=== PATIENT | female | born 1990 | race Caucasian/White ===

== ENCOUNTER 2016-05-22 09:38 | Emergency (ER) | payer OTHER ==
[2016-05-22 09:51] VITALS: BP 114/76
--- NOTE | 2016-05-22 11:29 | UC ---
Any Kim Rebecca, scribed for Varsha Biswas MD on 05/22/16 at 1033 . Respiratory Complaint HPI - HPI Summary HPI Summary: Pt is a 25 y/o F accompanied by her 2 month old daughter who presents to [facility] c/o nasal congestion, nonproductive cough, sore throat and diffuse body aches. Sx began suddenly 5 days ago and have been constant since onset. Associated pain is currently ranked 6/10 and characterized as aching. Sx aggravated and alleviated by nothing, unchanged by OTC medications. Denies any rash. Pt has 4 children (eldest is 7 years old) and reports that illness has been present throughout the household. Is not breast feeding. Did not receive her flu vaccine. 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 Does not take any daily medications. SHx current smoker. PMHx seizures and Hepatitis C. FHx seizures. PCP is Dr. Galan. - History of Current Complaint Chief Complaint: UCRespiratory Stated Complaint: HEAD CONGESTION SORE THROAT Hx Obtained From: Patient Hx From Patient Unobtainable Due To: Extremis Hx Last Menstrual Period: 05/05/2016 Onset/Duration: Sudden Onset, Lasting Days - 5 days, Still Present Timing: Constant Severity Initially: Moderate Severity Currently: Moderate Pain Intensity: 6 Pain Scale Used: 0-10 Numeric Character: Cough: Nonproductive Aggravating Factors: Nothing Alleviating Factors: Nothing Associated Signs And Symptoms: Positive: Nasal Congestion - Risk Factors Pulmonary Embolism Risk Factors: Negative Cardiac Risk Factors: Negative Pseudomonas Risk Factors: Negative Tuberculosis Risk Factors: Negative - Allergies/Home Medications Allergies/Adverse Reactions: Allergies Allergy/AdvReac Type Severity Reaction Status Date / Time Penicillin V Allergy Unknown Rash Verified 05/22/16 09:45 [From Penicillin VK Potassium] Aspirin Allergy Hives Verified 05/22/16 09:45 PMH/Surg Hx/FS Hx/Imm Hx Neurological History Of: Reports: Seizures - only when in pain Other History Of: Hepatitis C - Surgical History Surgical History: Yes Surgery Procedure, Year, and Place: right arm fx at 9 years old. - Family History Known Family History: Positive: Seizure Disorder Family History: none - Social History Occupation: Employed Full-time Lives: With Family Alcohol Use: None Substance Use Type: Synthetic Drugs Substance Use Comment - Amount & Last Used: 08/15/14 prior to admission Smoking Status (MU): Current Every Day Smoker Type: Cigarettes Amount Used/How Often: 5 cigs/day Length of Time of Smoking/Using Tobacco: 10+ years Have You Smoked in the Last Year: Yes - Immunization History Most Recent Influenza Vaccination: no Most Recent Tetanus Shot: 01/11/12 Most Recent Pneumonia Vaccination: never Review of Systems Skin: Rash - Negative ENT: Sore Throat, Other - Nasal congestion Respiratory: Cough - Nonproductive Musculoskeletal: Myalgia All Other Systems Reviewed And Are Negative: Yes Physical Exam Triage Information Reviewed: Yes Appearance: No Pain Distress, Well-Nourished, Ill-Appearing - mild Vital Signs: Initial Vital Signs Temp 98.0 F 05/22/16 09:46 Pulse 94 05/22/16 09:46 Resp 16 05/22/16 09:46 BP 114/76 05/22/16 09:46 Pulse Ox 100 05/22/16 09:46 Vital Signs Reviewed: Yes Eyes: Positive: Conjunctiva Clear ENT: Positive: Pharyngeal erythema, Nasal congestion, TMs normal Neck: Positive: Supple, Nontender, No Lymphadenopathy Respiratory: Positive: Lungs clear, Normal breath sounds, No respiratory distress Cardiovascular: Positive: RRR, No Murmur, Pulses Normal, Brisk Capillary Refill Musculoskeletal: Positive: Strength Intact, ROM Intact Neurological: Positive: Alert, Muscle Tone Normal Psychological Exam: Normal Skin Exam: Normal UC Diagnostic Evaluation - Laboratory O2 Sat by Pulse Oximetry: 100 Re-Evaluation - Re-Evaluation First Eval Re-Evaluation Time: 11:16 Change: Improved Comment: Discussed current results with patient. Advised pt to sleep, increase fluids and rest as much as possible. Pt requests a prescription for cough medication. Reports that she is typically home alone with her children, so she would like to avoid narcotics. Would like an inhaler for sx. Advised pt to use inhaler QID through the weekend. Counseled pt on quitting/lessening smoking. Respiratory Course/Dx - Course Course Of Treatment: Allergies noted. Influenza A, Influenza B and Group A Rapid Strep all negative. - Differential Dx/Diagnosis Differential Diagnosis/HQI/PQRI: Bronchitis, Influenza, Lower Resp Infection, Sinusitis Provider Diagnoses: Tobacco abuse disorder. Acute bronchitis Discharge - Discharge Plan Condition: Stable Disposition: HOME Prescriptions: Albuterol HFA INHALER* [Ventolin HFA Inhaler*] 1 - 2 puff INH Q4H PRN #1 mdi PRN Reason: Cough Azithromycin TAB* [Zithromax TAB (Z-LILIANA) 250 mg #6 tabs] 2 tab PO .TODAY, THEN 1 DAILY #1 liliana Benzonatate CAP* [Tessalon CAP*] 100 mg PO TID PRN #20 cap PRN Reason: Cough Patient Education Materials: Acute Bronchitis (ED) Forms: *Work Release Referrals: Tammy Galan MD [Primary Care Provider] - Additional Instructions: RETURN TO URGENT CARE FOR ANY RETURNING OR WORSENING OF SYMPTOMS. The documentation as recorded by the Any soliman Rebecca accurately reflects the service I personally performed and the decisions made by True zaman Barbara J, MD.
== END 2016-05-22 11:28 | disposition home or self-care (01) ==
LOC: UCEAST 09:38
DX: J20.9 Acute bronchitis, unspecified (principal); Z88.6 Allergy status to analgesic agent; Z88.0 Allergy status to penicillin; F17.210 Nicotine dependence, cigarettes, uncomplicated
CPT/HCPCS: 87502; 87651; 99212; G0463

== ENCOUNTER 2016-05-25 13:55 | Emergency (ER) | payer OTHER ==
[2016-05-25 14:19] VITALS: BP 146/85
--- NOTE | 2016-05-25 15:35 | UC ---
Respiratory Complaint HPI - HPI Summary HPI Summary: HAS HAD OVER A WEEK OF COUGH, CONGESTION, FATIGUE, ST. SEEN HERE ON 05/22 AND TX FOR BRONCHITIS WITH AZITH, ALBUTEROL AND TESSALON. STATES SHE IS NO BETTER AND NOW HAS WATERY STOOLS. NO FEVER. - History of Current Complaint Chief Complaint: UCRespiratory Stated Complaint: DIARRHEA ABD PAIN COUGH Time Seen by Provider: 05/25/16 15:22 Hx Obtained From: Patient Hx Last Menstrual Period: 05/05/16 Onset/Duration: Gradual Onset, Lasting Days, Still Present Severity Initially: Moderate Severity Currently: Moderate Pain Intensity: 8 Pain Scale Used: 0-10 Numeric Character: Cough: Nonproductive Aggravating Factors: Nothing Alleviating Factors: Nothing Associated Signs And Symptoms: Positive: URI, Nasal Congestion - Allergies/Home Medications Allergies/Adverse Reactions: Allergies Allergy/AdvReac Type Severity Reaction Status Date / Time Penicillin V Allergy Unknown Rash Verified 05/22/16 09:45 [From Penicillin VK Potassium] Aspirin Allergy Hives Verified 05/22/16 09:45 PMH/Surg Hx/FS Hx/Imm Hx Endocrine History Of: Denies: Diabetes, Thyroid Disease Cardiovascular History Of: Denies: Cardiac Disorders, Hypertension, Congestive Heart Failure Respiratory History Of: Denies: COPD, Asthma GI/ History Of: Denies: Ulcer, Renal Disease Neurological History Of: Reports: Seizures - only when in pain Other History Of: Hepatitis C - Surgical History Surgical History: Yes Surgery Procedure, Year, and Place: right arm fx at 9 years old. - Family History Known Family History: Positive: Diabetes, Seizure Disorder Family History: none - Social History Alcohol Use: None Substance Use Type: Synthetic Drugs Substance Use Comment - Amount & Last Used: 08/15/14 prior to admission Smoking Status (MU): Current Every Day Smoker Type: Cigarettes Amount Used/How Often: 5 cigs/day Length of Time of Smoking/Using Tobacco: 10+ years Have You Smoked in the Last Year: Yes - Immunization History Most Recent Influenza Vaccination: no Most Recent Tetanus Shot: 01/11/12 Most Recent Pneumonia Vaccination: never Review of Systems Constitutional: Negative, Fatigue ENT: Sore Throat, Nasal Discharge Respiratory: Cough Cardiovascular: Negative Gastrointestinal: Diarrhea All Other Systems Reviewed And Are Negative: Yes Physical Exam Triage Information Reviewed: Yes Appearance: Well-Appearing, No Pain Distress, Well-Nourished Vital Signs: Initial Vital Signs Temp 97.4 F 05/25/16 14:15 Pulse 92 05/25/16 14:15 Resp 16 05/25/16 14:15 BP 146/85 05/25/16 14:15 Pulse Ox 100 05/25/16 14:15 Vital Signs Reviewed: Yes Eyes: Positive: Conjunctiva Clear ENT: Positive: Hearing grossly normal, Pharynx normal, TMs normal Neck: Positive: Supple, Nontender, No Lymphadenopathy Respiratory Exam: Normal Cardiovascular Exam: Normal Abdomen Description: Positive: Soft Musculoskeletal: Positive: No Edema Neurological: Positive: Alert Psychological: Positive: Age Appropriate Behavior Skin: Negative: rashes UC Diagnostic Evaluation - Laboratory O2 Sat by Pulse Oximetry: 100 Respiratory Course/Dx - Differential Dx/Diagnosis Provider Diagnoses: ACUTE BRONCHITIS - LIKELY VIRAL Discharge - Discharge Plan Condition: Stable Disposition: HOME Prescriptions: guaiFENesin/CODIEN 100MG-10MG* [Robitussin AC 100Mg-10Mg*] 5 - 10 ml PO Q6H PRN #150 ml MDD 40ML PRN Reason: Cough Patient Education Materials: Acute Bronchitis (ED) Forms: *Work Release Referrals: Tammy Galan MD [Primary Care Provider] - If Needed Additional Instructions: YOUR SYMPTOMS ARE LIKELY VIRAL IN ETIOLOGY WHICH WOULD EXPLAIN WHY THE ANTIBIOTIC SEEMED TO HAVE NO EFFECT. CONTINUE THE AZITH TO COMPLETE COURSE. WILL GIVE CODEINE COUGH SYRUP TO HELP WITH YOUR SYMPTOMS AND ALLOW YOU TO GET SOME REST. NEVER CO-SLEEP WITH YOUR BABY IN THE BED WHILE ON SEDATING MEDICATION AND BE SURE YOUR PARTNER IS IN THE ROOM TO RESPOND TO BABY IF SHE CRIES AT NIGHT YOU MAY NOT WAKE UP OR HEAR HER CRIES WHILE ON THIS MEDICATION. SEEK FOLLOW-UP IF YOU ARE NOT IMPROVING OVER THE NEXT 1-2 WEEKS.
== END 2016-05-25 16:12 | disposition home or self-care (01) ==
LOC: UCEAST 13:55
DX: J20.9 Acute bronchitis, unspecified (principal); Z88.6 Allergy status to analgesic agent; Z88.0 Allergy status to penicillin; F17.210 Nicotine dependence, cigarettes, uncomplicated
CPT/HCPCS: 99212; G0463

== ENCOUNTER 2016-07-30 09:42 | Emergency (ER) | payer SELFPAY ==
[2016-07-30 10:33] VITALS: BP 131/74
--- NOTE | 2016-07-30 12:19 | UC ---
Upper Extremity HPI - HPI Summary HPI Summary: Stung at palmar base of L thumb about 2am by wasp or bee and has had marked swelling, redness, itching, and redness since then, coming up her arm to L elbow. - History of Current Complaint Chief Complaint: UCAllergicReaction Stated Complaint: BEE STING REACTION Time Seen by Provider: 07/30/16 12:00 Hx Obtained From: Patient Hx Last Menstrual Period: current ?: No Onset/Duration: Sudden Onset Severity Initially: Mild Severity Currently: Moderate Character: Stiffness Aggravating Factor(s): Nothing Alleviating Factor(s): Rest Associated Signs And Symptoms: Positive: Swelling, Redness Related History: Dominant Hand Right - Allergies/Home Medications Allergies/Adverse Reactions: Allergies Allergy/AdvReac Type Severity Reaction Status Date / Time Penicillin V Allergy Unknown Rash Verified 07/30/16 10:29 [From Penicillin VK Potassium] Aspirin Allergy Hives Verified 07/30/16 10:29 PMH/Surg Hx/FS Hx/Imm Hx Endocrine History Of: Denies: Diabetes, Thyroid Disease Cardiovascular History Of: Denies: Cardiac Disorders, Hypertension, Congestive Heart Failure Respiratory History Of: Denies: COPD, Asthma GI/ History Of: Denies: Ulcer, Renal Disease Neurological History Of: Reports: Seizures - only when in pain Other History Of: Hepatitis C - Surgical History Surgical History: Yes Surgery Procedure, Year, and Place: right arm fx at 9 years old. - Family History Known Family History: Positive: Diabetes, Seizure Disorder Family History: none - Social History Occupation: Employed Full-time Lives: With Family Alcohol Use: None Substance Use Type: None Substance Use Comment - Amount & Last Used: 08/15/14 prior to admission Smoking Status (MU): Light Every Day Tobacco Smoker Type: Cigarettes Amount Used/How Often: 5 cigs/day Length of Time of Smoking/Using Tobacco: 10+ years Have You Smoked in the Last Year: Yes - Immunization History Most Recent Influenza Vaccination: no Most Recent Tetanus Shot: 01/11/12 Most Recent Pneumonia Vaccination: never Review of Systems Constitutional: Negative Skin: Other - swelling and redness of L hand Eyes: Negative ENT: Negative Respiratory: Negative Cardiovascular: Negative Gastrointestinal: Negative Genitourinary: Negative Motor: Negative Neurovascular: Negative Musculoskeletal: Negative Neurological: Negative Psychological: Negative All Other Systems Reviewed And Are Negative: Yes Physical Exam Triage Information Reviewed: Yes Appearance: Well-Appearing, No Pain Distress, Well-Nourished Vital Signs: Initial Vital Signs Temp 98.1 F 07/30/16 10:29 Pulse 88 07/30/16 10:29 Resp 16 07/30/16 10:29 BP 131/74 07/30/16 10:29 Pulse Ox 100 07/30/16 10:29 Vital Signs Reviewed: Yes Eye Exam: Normal Eyes: Positive: Conjunctiva Clear ENT Exam: Normal ENT: Positive: Normal ENT inspection, Hearing grossly normal, Pharynx normal, TMs normal, Other: - no oropharyngeal or tongue edema Dental Exam: Normal Neck exam: Normal Neck: Positive: Supple, Nontender, No Lymphadenopathy Respiratory Exam: Normal Respiratory: Positive: Chest non-tender, Lungs clear, Normal breath sounds, No respiratory distress, No accessory muscle use Cardiovascular Exam: Normal Cardiovascular: Positive: RRR, No Murmur Musculoskeletal: Positive: Strength Intact, ROM Limited @ - L hand plant safety leader due to swelling Neurological Exam: Normal Neurological: Positive: Alert Psychological Exam: Normal Skin Exam: Other - L hand diffuse swelling, redness mainly on palmar aspect of hand with wide linear streak (approx 5cm wide) up to elbow Upper Extremity Course/Dx - Differential Dx/Diagnosis Provider Diagnoses: L hand insect sting with large local reaction. Elevated blood pressure due to pain Discharge - Discharge Plan Condition: Stable Disposition: HOME Prescriptions: Cetirizine HCl [Goodsense All Day Allergy] 10 mg PO DAILY #30 tab predniSONE TAB* [Deltasone TAB*] 50 mg PO DAILY #5 tab Patient Education Materials: Insect Bite or Sting (ED) Forms: *Work Release Referrals: Tammy Galan MD [Primary Care Provider] - If Needed Additional Instructions: As we discussed, your large local reaction is common with stinging insects and is NOT a dangerous allergic reaction. Some stings lead to major swelling and redness and some stay small. Today I recommend you take 25-50mg diphenhydramine (benadryl) every 4 hours while you are awake. Starting tomorrow you can take 10mg cetirizine in the morning and 2 diphenhydramine at bedtime until your symptoms are gone.
== END 2016-07-30 12:18 | disposition home or self-care (01) ==
LOC: UCEAST 09:42
DX: T63.441A Toxic effect of venom of bees, accidental (unintentional), initial encounter (principal); L29.9 Pruritus, unspecified; Y92.9 Unspecified place or not applicable; R03.0 Elevated blood-pressure reading, without diagnosis of hypertension; Z88.6 Allergy status to analgesic agent; Z88.0 Allergy status to penicillin; F17.210 Nicotine dependence, cigarettes, uncomplicated
CPT/HCPCS: 99212; G0463

== ENCOUNTER 2017-01-16 10:39 | Emergency (ER) | payer OTHER ==
[2017-01-16 11:12] VITALS: BP 108/73
[2017-01-16] MEDS ORDERED: predniSONE TAB* 20 MG PO ONE (11:30)
[2017-01-16] MEDS ORDERED: Albuterol/Ipratropium NEB.SOL* Albuterol 2.5 MG/Ipratropium 0.5 MG 3 ML INH ONE (11:30)
--- NOTE | 2017-01-16 11:31 | UC ---
FLU HPI - HPI Summary HPI Summary: 2-3 days of worseing cough, congestion, wheezing, cold chills, subjective fever - History of Current Complaint Chief Complaint: UCRespiratory Stated Complaint: FLU SYMPTOMS Time Seen by Provider: 01/16/17 11:23 Hx Obtained From: Patient Hx Last Menstrual Period: 01/02/17 ?: No Onset/Duration: Sudden Onset, Lasting Days - 3 Severity Initially: Moderate Pain Intensity: 6 Pain Scale Used: 0-10 Numeric Associated Signs & Symptoms: Positive: Fever, Myalgia, Cough - Allergy/Home Medications Allergies/Adverse Reactions: Allergies Allergy/AdvReac Type Severity Reaction Status Date / Time Penicillin V Allergy Unknown Rash Verified 01/16/17 11:12 [From Penicillin VK Potassium] Aspirin Allergy Hives Verified 01/16/17 11:12 PMH/Surg Hx/FS Hx/Imm Hx Previously Healthy: No Other History Of: Hepatitis C - Surgical History Surgical History: Yes Surgery Procedure, Year, and Place: right arm fx at 9 years old. 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 addiction Smoking Status (MU): Light Every Day Tobacco Smoker Type: Cigarettes Amount Used/How Often: 5 cigs/day Length of Time of Smoking/Using Tobacco: 10+ years Have You Smoked in the Last Year: Yes Cessation Counseling: Patient Advised to Stop - Immunization History Most Recent Influenza Vaccination: no Most Recent Tetanus Shot: 01/11/12 Most Recent Pneumonia Vaccination: never Review of Systems Constitutional: Fever, Chills, Fatigue Skin: Negative Eyes: Negative ENT: Sore Throat Respiratory: Shortness Of Breath, Cough Cardiovascular: Negative Gastrointestinal: Negative Genitourinary: Negative Motor: Negative Neurovascular: Negative Musculoskeletal: Arthralgia Neurological: Negative Psychological: Negative Is Patient Immunocompromised?: No All Other Systems Reviewed And Are Negative: Yes Physical Exam Triage Information Reviewed: Yes Appearance: Ill-Appearing, Pain Distress, Obese Vital Signs: Initial Vital Signs Temp 98.0 F 01/16/17 11:09 Pulse 94 01/16/17 11:09 Resp 16 01/16/17 11:09 BP 108/73 01/16/17 11:09 Pulse Ox 99 01/16/17 11:09 Vital Signs Reviewed: Yes Eye Exam: Normal Eyes: Positive: Conjunctiva Clear ENT Exam: Normal ENT: Positive: Normal ENT inspection, Hearing grossly normal, Pharynx normal, TMs normal. Negative: Nasal congestion, Nasal drainage, Tonsillar swelling, Tonsillar exudate, Trismus, Muffled/hoarse voice Dental Exam: Normal Neck exam: Normal Neck: Positive: Supple, Nontender, No Lymphadenopathy Respiratory Exam: Normal Respiratory: Positive: Chest non-tender, No respiratory distress, No accessory muscle use, Wheezing Cardiovascular Exam: Normal Cardiovascular: Positive: RRR, No Murmur, Pulses Normal, Brisk Capillary Refill Musculoskeletal Exam: Normal Musculoskeletal: Positive: Strength Intact, ROM Intact, No Edema Neurological Exam: Normal Neurological: Positive: Alert, Muscle Tone Normal Psychological Exam: Normal Skin Exam: Normal Re-Evaluation - Re-Evaluation First Eval Change: Improved - increase airmovement---wheeze resolved, Flu Course/Dx - Course Course Of Treatment: albuterol, prednisone increase fluids, rest follow with pcp prn - Differential Dx/Diagnosis Provider Diagnoses: URI, Nicotine dependent, bronchospasm Discharge - Discharge Plan Condition: Stable Disposition: HOME Prescriptions: Albuterol HFA INHALER* [Ventolin HFA Inhaler*] 2 puff INH Q4H PRN #1 mdi PRN Reason: wheeze/cough predniSONE TAB* [Deltasone TAB*] 20 mg PO DAILY #9 tab Patient Education Materials: How to Stop Smoking (ED), Upper Respiratory Infection (ED), Bronchospasm (ED), How to Use a Metered-Dose Inhaler and a Spacer (ED) Forms: *Work Release Referrals: Tammy Galan MD [Primary Care Provider] - If Needed
== END 2017-01-16 12:27 | disposition home or self-care (01) ==
LOC: UCEAST 10:39
DX: J06.9 Acute upper respiratory infection, unspecified (principal); J98.01 Acute bronchospasm; Z88.6 Allergy status to analgesic agent; E66.9 Obesity, unspecified; Z88.0 Allergy status to penicillin; Z86.19 Personal history of other infectious and parasitic diseases; F17.210 Nicotine dependence, cigarettes, uncomplicated
CPT/HCPCS: 99212; A9270-GY; G0463; J7512

== ENCOUNTER 2017-05-01 09:31 | Emergency (ER) | payer OTHER | END 2017-05-01 12:40 | disposition left against medical advice (07) | LOC: UCEAST 09:31 | DX: Z53.21 Procedure and treatment not carried out due to patient leaving prior to being seen by health care provider (principal) ==

== ENCOUNTER 2017-10-06 13:08 | Emergency (ER) | payer SELFPAY ==
[2017-10-06 13:17] VITALS: BP 118/75
[2017-10-06] MEDS ORDERED: Tetan/Diph/Pertus SYR(Tdap)* 0.5 ML SYR(BOOSTRIX) use SYR IM ONE (13:31)
--- NOTE | 2017-10-06 13:57 | RAD ---
INDICATION: Hand pain and edema at the metacarpals from dog bite. COMPARISON: No relevant prior exams available on the [facility] for comparison. TECHNIQUE: AP and lateral hand views LEFT hand. REPORT: Severe soft tissue swelling over the dorsum of the hand at the level of the metacarpal phalangeal joints. At the ulnar margin of the head of the third metacarpal there is osseous irregularity which may reflect a focal impaction type fracture secondary to a bite type injury. No subcutaneous emphysema or conspicuous foreign body evident. Normal articular alignment. IMPRESSION: #. At the ulnar margin of the head of the third metacarpal there is osseous irregularity which may reflect a focal impaction type fracture secondary to a bite type injury. #. Soft tissue swelling without visualized subcutaneous emphysema or conspicuous foreign body.
--- NOTE | 2017-10-06 14:25 | UC ---
Any Kim Rebecca, scribed for Bob Chambers MD on 10/06/17 at 1327 . Bite Injury/Animal HPI - HPI Summary HPI Summary: Pt is a 26 y/o F who presents to [facility] c/o animal bite to the left hand. Last night, she went to pet a pitbull and got bit. She does not know the owners, but they reported that the dog is UTD with all vaccinations, including rabies. Associated pain is moderate, ranked 6/10. Did not call animal control or the police. Right-hand dominant and last Tetanus was in 2011. - History of Current Complaint Chief Complaint: UCBiteInjury Stated Complaint: DOG BITE Time Seen by Provider: 10/06/17 13:25 Hx Obtained From: Patient Hx Last Menstrual Period: 10/03/17 Severity Currently: Moderate Pain Intensity: 6 Pain Scale Used: 0-10 Numeric Onset/Duration: Still Present Type of Bite: Pet - Dog Has Animal Been Immunized?: Yes Aggravating Factor(s): Nothing Alleviating Factor(s): Nothing Animal Control Notified: No - Allergies/Home Medications Allergies/Adverse Reactions: Allergies Allergy/AdvReac Type Severity Reaction Status Date / Time aspirin Allergy Hives Verified 10/06/17 13:17 Penicillins Allergy Rash Verified 10/06/17 13:17 PMH/Surg Hx/FS Hx/Imm Hx - Additional Past Medical History Additional PMH: NEGATIVE PMHx: COPD, Asthma Other History Of: Hepatitis C - Surgical History Surgical History: Yes Surgery Procedure, Year, and Place: right arm fx at 9 years old. 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 Smoking Status (MU): Light Every Day Tobacco Smoker Type: Cigarettes Amount Used/How Often: 1 pk every 2 days Length of Time of Smoking/Using Tobacco: 10+ years Have You Smoked in the Last Year: Yes - Immunization History Most Recent Influenza Vaccination: no Most Recent Tetanus Shot: 01/11/12 Most Recent Pneumonia Vaccination: never Review of Systems Constitutional: Negative Skin: Other - L hand dog bite Eyes: Negative ENT: Negative Respiratory: Negative Cardiovascular: Negative Gastrointestinal: Negative Genitourinary: Negative Motor: Negative Neurovascular: Negative Musculoskeletal: Negative Neurological: Negative Psychological: Negative All Other Systems Reviewed And Are Negative: Yes Physical Exam - Summary Physical Exam Summary: Appearance: Well appearing, no pain distress Skin: warm, dry, reflects adequate perfusion, 1 cm semi-curved laceration to the radial surface of the index finger near the MCP joint, there is no wound at the head of the third metacarpal Head/face: normal Eyes: EOMI, BASILIO ENT: normal Neck: supple, non-tender Respiratory: CTA, breath sounds present Cardiovascular: RRR, pulses symmetrical Musculoskeletal: contusion and tenderness to the metacarpals of the left index, middle, and ring fingers with slight ecchymosis and swelling, strength/ROM intact Neuro: normal, sensory motor intact, A&Ox3 Triage Information Reviewed: Yes Vital Signs: Initial Vital Signs Temp 97.7 F 10/06/17 13:11 Pulse 83 10/06/17 13:11 Resp 16 10/06/17 13:11 BP 118/75 10/06/17 13:11 Pulse Ox 98 10/06/17 13:11 Vital Signs Reviewed: Yes Procedures - Splinting 1 Hand-Made Type: orthoglass Splint: volar Pre-Proc Neuro Vasc Exam: normal Post-Proc Neuro Vasc Exam: normal Diagnostics - Radiology Hand XR Radiology Interpretation Completed By: Radiologist - #. At the ulnar margin of the head of the third metacarpal there is osseous irregularity which may reflect a focal impaction type fracture secondary to a bite type injury. #. Soft tissue swelling without visualized subcutaneous emphysema or conspicuous foreign body. Physician reviewed this report. Re-Evaluation - Re-Evaluation First Eval Re-Evaluation Time: 14:15 Comment: Discussed XR results and splinted. Bite Injury Course/Dx - Course Course Of Treatment: Patient with an old skin tear/laceration to the hand on the radial surface of the MCP area of the index finger. This is dried with some erythema around it. She will require antibiotics. There is also tenderness with ecchymosis centered around the metacarpal of the long finger. There is an impacted fracture at the site without displacement. There is no intra-articular component. A splint was applied. Voucher given for antibiotics. - Differential Dx/Diagnosis Provider Diagnoses: Left third Metacarpal head fracture, dog bite, left hand laceration Discharge - Sign-Out/Discharge Documenting (check all that apply): Discharge/Admit/Transfer - Discharge - Discharge Plan Condition: Good Disposition: HOME Prescriptions: Clindamycin Cap(NF) [Clindamycin Cap 300 mg Cap(NF)] 300 mg PO TID #21 cap DOXYcycline CAP(*) [DOXYcycline 100MG CAP(*)] 100 mg PO BID #14 cap Patient Education Materials: Animal Bite (ED), Hand Fracture (ED) Referrals: Tammy Galan MD [Primary Care Provider] - Anastacia Zacarias MD [Medical Doctor] - Additional Instructions: Clean the wound with soap and water frequently throughout the day. The fracture should not require any specialized care. He can follow up with your family doctor. Orthopedic referral was given should you experience more discomfort or your doctor wants to refer you. Keep splint clean and dry. - Billing Disposition and Condition Condition: GOOD Disposition: Home The documentation as recorded by the Any soliman Rebecca accurately reflects the service I personally performed and the decisions made by Reyes zaman Kirk, MD.
== END 2017-10-06 14:32 | disposition home or self-care (01) ==
LOC: UCEAST 13:08
DX: S62.393A Other fracture of third metacarpal bone, left hand, initial encounter for closed fracture (principal); S61.412A Laceration without foreign body of left hand, initial encounter; W54.0XXA Bitten by dog, initial encounter; Y93.9 Activity, unspecified; Y92.9 Unspecified place or not applicable; Z23 Encounter for immunization; Z88.6 Allergy status to analgesic agent; Z88.0 Allergy status to penicillin; Z83.3 Family history of diabetes mellitus; Z82.0 Family history of epilepsy and other diseases of the nervous system; F17.210 Nicotine dependence, cigarettes, uncomplicated
CPT/HCPCS: 90471; 90715; 99212; G0463

== ENCOUNTER 2017-11-29 19:48 | Emergency (ER) | payer OTHER ==
--- NOTE | 2017-11-29 19:57 | UC ---
Ear Complaint HPI - HPI Summary HPI Summary: 27 yo female presents with right ear pain for the last 4 days. She tells me that her ear feels full and she has been putting q-tips and tweezers in her ear trying to "get stuff out". Has never had a problem with cerumen impaction. Has not been swimming recently. Denies fever, chills, headache, dizziness, or drainage from the ear. - History of Current Complaint Stated Complaint: EAR PAIN Time Seen by Provider: 11/29/17 19:56 Hx Obtained From: Patient Hx Last Menstrual Period: 10/03/17 Onset/Duration: Gradual Onset Severity Initially: Moderate Severity Currently: Severe Pain Intensity: 8 Pain Scale Used: 0-10 Numeric - Allergies/Home Medications Allergies/Adverse Reactions: Allergies Allergy/AdvReac Type Severity Reaction Status Date / Time aspirin Allergy Hives Verified 10/06/17 13:17 Penicillins Allergy Rash Verified 10/06/17 13:17 PMH/Surg Hx/FS Hx/Imm Hx - Additional Past Medical History Additional PMH: None Other History Of: Hepatitis C - Surgical History Surgical History: Yes Surgery Procedure, Year, and Place: right arm fx at 9 years old. 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 Smoking Status (MU): Light Every Day Tobacco Smoker Type: Cigarettes Amount Used/How Often: 1 pk every 2 days Length of Time of Smoking/Using Tobacco: 10+ years Have You Smoked in the Last Year: Yes - Immunization History Most Recent Influenza Vaccination: no Most Recent Tetanus Shot: 01/11/12 Most Recent Pneumonia Vaccination: never Review of Systems Constitutional: Negative Skin: Negative Eyes: Negative ENT: Ear Ache Respiratory: Negative Cardiovascular: Negative Neurovascular: Negative Neurological: Negative Psychological: Negative All Other Systems Reviewed And Are Negative: Yes Physical Exam - Summary Physical Exam Summary: GENERAL: NAD. WDWN. No pain distress. SKIN: No rashes, sores, lesions, or open wounds. HEENT: Head: AT/NC Eyes: EOM intact. Conjunctiva clear without inflammation or discharge. Ears: Hearing grossly normal. LEFT EAR: TM intact. Ear canal with mild erythema. No edema or drainage. RIGHT EAR: Moderate ear canal erythema. Mild edema. Mild white purulent drainage around TM. On/within the TM there are two clusters of yellow spore-like growths. Nose: Nasal mucosa pink and moist. NTTP maxillary and frontal sinus. Throat: Posterior oropharynx without exudates, erythema, or tonsillar enlargement. Uvula midline. NECK: Supple. Nontender. No lymphadenopathy. CHEST: CTAB. No r/r/w. No accessory muscle use. Breathing comfortably and in no distress. CV: RRR. Without m/r/g. Pulses intact. NEURO: Alert. CN II-XII grossly intact. PSYCH: Age appropriate behavior. Triage Information Reviewed: Yes Vital Signs: Vital Signs: Temp Pulse Resp BP Pulse Ox 97.0 F 91 16 120/81 99 11/29/17 19:52 11/29/17 19:52 11/29/17 19:52 11/29/17 19:52 11/29/17 19:52 Vital Signs Reviewed: Yes Ear Complaint Course/Dx - Course Course Of Treatment: Otitis externa with suspected fungal component. Discussed with Dr. Wilkins. Will treat otitis externa with ofloxacin and have her try an OTC ear drop with acetic acid to treat the fungal component. I advised pt that if her symptoms worsen or if she develops radiating pain, fever, or new symptoms - to return to the clinic or go to the ED. Pt was agreeable to the plan. - Differential Dx/Diagnosis Provider Diagnoses: Right ear otitis externa Discharge - Sign-Out/Discharge Documenting (check all that apply): Patient Departure All imaging exams completed and their final reports reviewed: No Studies - Discharge Plan Condition: Stable Disposition: HOME Prescriptions: Ofloxacin 0.3% OTIC.JUAN* [Floxin 0.3% OTIC.JUAN*] 4 drop RIGHT EAR BID #1 btl Patient Education Materials: Otitis Externa (ED) Referrals: Tammy Galan MD [Primary Care Provider] - Additional Instructions: If you develop a fever, shortness of breath, chest pain, new or worsening symptoms - please call your PCP or go to the ED. 1) Please also ask the Pharmacist for an ear drop that contains acetic acid and use these ear drops IN ADDITION to your prescription ear drops - Billing Disposition and Condition Condition: STABLE Disposition: Home - Attestation Statements Provider Attestation: I performed a face to face evaluation of this patient and obtained an indepentent history and exam. I agree with the above history, physical exam and plan of the midlevel provider.
[2017-11-29 20:00] VITALS: BP 120/81
== END 2017-11-29 20:26 | disposition home or self-care (01) ==
LOC: UCEAST 19:48
DX: H60.91 Unspecified otitis externa, right ear (principal); F17.210 Nicotine dependence, cigarettes, uncomplicated; Z88.6 Allergy status to analgesic agent; Z88.0 Allergy status to penicillin
CPT/HCPCS: 99213; G0463

== ENCOUNTER 2018-04-02 11:02 | Emergency (ER) | payer OTHER ==
[2018-04-02 11:13] VITALS: BP 127/70
--- NOTE | 2018-04-02 11:31 | UC ---
Ear Complaint HPI - HPI Summary HPI Summary: 27-year-old female presents with one-month history of right ear pain and decreased hearing. States she has been seen by her primary care provider who has treated her with a course of azithromycin and provided her with some eardrops with no improvement in symptoms. Notes some decreased hearing in the right ear. Denies fever, chills, ear drainage, nasal congestion, nasal discharge, sore throat, tinnitus, dizziness, vertigo, chest pain, shortness of breath, abdominal pain, nausea, or vomiting. - History of Current Complaint Chief Complaint: UCEar Stated Complaint: EAR COMPLAINT Time Seen by Provider: 04/02/18 11:21 Hx Obtained From: Patient Hx Last Menstrual Period: 04/02/18 Pain Intensity: 3 - Allergies/Home Medications Allergies/Adverse Reactions: Allergies Allergy/AdvReac Type Severity Reaction Status Date / Time aspirin Allergy Hives Verified 04/02/18 11:14 Penicillins Allergy Rash Verified 04/02/18 11:14 sulfamethoxazole Allergy Swelling Verified 04/02/18 11:14 [From Bactrim] Of Face,Lips,& Throat trimethoprim [From Bactrim] Allergy Swelling Verified 04/02/18 11:14 Of Face,Lips,& Throat Home Medications: Home Medications Azithromycin 500 mg PO DAILY 04/02/18 [History Confirmed 04/02/18] PMH/Surg Hx/FS Hx/Imm Hx Previously Healthy: Yes - Denies signigicant PMH Other History Of: Hepatitis C - Surgical History Surgical History: Yes Surgery Procedure, Year, and Place: right arm fx at 9 years old. 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 Negative: Sore Throat, Nasal Discharge, Sinus Congestion, Sinus Pain/Tenderness Respiratory: Positive: Cough. Negative: Shortness Of Breath Cardiovascular: Negative: Palpitations, Chest Pain Gastrointestinal: Negative: Abdominal Pain, Vomiting, Diarrhea, Nausea Is Patient Immunocompromised?: No Physical Exam - Summary Physical Exam Summary: GENERAL APPEARANCE: Well developed, well nourished, alert and cooperative, and appears to be in no acute distress. EYES: Conjunctiva clear. No drainage. Vision is grossly intact. EARS: Left external auditory canal and tympanic membrane clear. Right external auditory canal with cerumen impaction. TM not visualized. Hearing grossly intact. NOSE: No nasal congestion or discharge. THROAT: Oral cavity and pharynx normal. No inflammation, swelling, exudate, or lesions. Teeth and gingiva in good general condition. NECK: Neck supple, non-tender without lymphadenopathy. CARDIAC: Normal S1 and S2. No S3, S4 or murmurs. Rhythm is regular. There is no peripheral edema, cyanosis or pallor. Extremities are warm and well perfused. Capillary refill is less than 2 seconds. LUNGS: Clear to auscultation and percussion without rales, rhonchi, wheezing or diminished breath sounds. ABDOMEN: Positive bowel sounds. Soft, nondistended, nontender. No guarding or rebound. No masses or hepatosplenomegally. MUSKULOSKELETAL: ROM intact to all extremities. No joint erythema or tenderness. Normal muscular development. Normal gait. SKIN: Skin normal color, texture and turgor with no lesions or eruptions. Vital Signs: Initial Vital Signs Temp 97.2 F 04/02/18 11:10 Pulse 90 04/02/18 11:10 Resp 18 04/02/18 11:10 BP 127/70 04/02/18 11:10 Pulse Ox 100 04/02/18 11:10 Re-Evaluation - Re-Evaluation First Eval Re-Evaluation Time: 11:55 Change: Improved Comment: Post-irrigation patient is reporting improved hearing and states pain is also improved. Right external auditory canal with mild excoriation and inflammation. TM intact, opaque, with good cone of light. Ear Complaint Course/Dx - Course Course Of Treatment: 27-year-old female presents with one-month history of right ear pain and decreased hearing. States she has been seen by her primary care provider who has treated her with a course of azithromycin and provided her with some eardrops with no improvement in symptoms. Notes some decreased hearing in the right ear. Denies fever, chills, ear drainage, nasal congestion , nasal discharge, sore throat, tinnitus, dizziness, vertigo, chest pain, shortness of breath, abdominal pain, nausea, or vomiting. Afebrile. Vital signs stable. Exam revealed a cerumen impaction of the right external auditory canal and otherwise unremarkable exam. Cerumen impaction was successfully irrigated and impaction removed. Post irrigation there was some notable excoriation of the right external auditory canal with some mild inflammation however of the TM was intact, opaque, with good cone of light. Will treat patient with a 7 day course of Ciprodex eardrops 4 drops twice a day to treat for an external otitis. She is to follow-up with her primary care provider if symptoms do not improve. Warning symptoms were reviewed with the patient. She verbalizes understanding and agrees with plan of care. - Differential Dx/Diagnosis Differential Diagnosis/HQI/PQRI: Cerumen Impaction, Otitis Externa, Otitis Media Provider Diagnosis: Otitis externa of right ear, Right ear impacted cerumen Discharge - Sign-Out/Discharge Documenting (check all that apply): Patient Departure All imaging exams completed and their final reports reviewed: No Studies - Discharge Plan Condition: Stable Disposition: HOME Prescriptions: Ciproflox/Dexameth OTIC.SUSP* [Ciprodex Otic*] 4 drop .SEE ORDER BID 7 Days #1 bottle Patient Education Materials: Otitis Externa (ED), Cerumen Impaction (ED) Referrals: Tammy Galan MD [Primary Care Provider] - 5 Days (If no improvement in symptoms.) Additional Instructions: You had a lot of wax in the right ear that was flushed out. There is some irritation and inflammation of the ear canal likely from the impacted ear wax but the ear drum was normal. Start Ciprodex ear drops 4 drops into the right ear twice a day for 7 days. Follow up with your primary care provider in 5 days if no improvement in symptoms. Seek immediate medical attention in the emergency room if you develop fever greater than 100.5 F, have worsening of pain, drainage or bleeding from the ear , dizziness, or any worsening of symptoms. - Billing Disposition and Condition Condition: STABLE Disposition: Home
== END 2018-04-02 12:05 | disposition home or self-care (01) ==
LOC: UCEAST 11:02
DX: H60.91 Unspecified otitis externa, right ear (principal); H61.21 Impacted cerumen, right ear; B19.20 Unspecified viral hepatitis C without hepatic coma; F17.210 Nicotine dependence, cigarettes, uncomplicated; Z88.6 Allergy status to analgesic agent; Z88.0 Allergy status to penicillin; Z88.2 Allergy status to sulfonamides
CPT/HCPCS: 99213; G0463

== ENCOUNTER 2019-04-25 17:40 | Emergency (ER) | payer OTHER ==
[2019-04-25 19:12] VITALS: BP 117/72
--- NOTE | 2019-04-25 19:47 | UC ---
FLU HPI - History of Current Complaint Chief Complaint: UCRespiratory Stated Complaint: RESP COMPLAINT Time Seen by Provider: 04/25/19 19:23 Hx Last Menstrual Period: 04/01/2019 Pain Intensity: 7 - Allergy/Home Medications Allergies/Adverse Reactions: Allergies Allergy/AdvReac Type Severity Reaction Status Date / Time aspirin Allergy Hives Verified 04/25/19 19:12 Penicillins Allergy Rash Verified 04/25/19 19:12 sulfamethoxazole Allergy Swelling Verified 04/25/19 19:12 [From Bactrim] Of Face,Lips,& Throat trimethoprim [From Bactrim] Allergy Swelling Verified 04/25/19 19:12 Of Face,Lips,& Throat Home Medications: Home Medications Albuterol HFA INHALER* [Ventolin HFA Inhaler*] 04/25/19 [History] PMH/Surg Hx/FS Hx/Imm Hx Other History Of: Hepatitis C - Surgical History Surgical History: Yes Surgery Procedure, Year, and Place: right arm fx at 9 years old. 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 Smoking Status (MU): Light Every Day Tobacco Smoker Type: Cigarettes Amount Used/How Often: 12 pk every day Length of Time of Smoking/Using Tobacco: 10+ years Have You Smoked in the Last Year: Yes Household Exposure Type: Cigarettes - Immunization History Most Recent Influenza Vaccination: no Most Recent Tetanus Shot: 01/11/12 Most Recent Pneumonia Vaccination: never Physical Exam Vital Signs: Initial Vital Signs Temp 97.6 F 04/25/19 19:03 Pulse 105 04/25/19 19:03 Resp 20 04/25/19 19:03 BP 117/72 04/25/19 19:03 Pulse Ox 100 04/25/19 19:03 Discharge ED - Discharge Plan Referrals: Tammy Galan MD [Primary Care Provider] -
== END 2019-04-25 19:50 | disposition left against medical advice (07) ==
LOC: UCEAST 17:40
DX: Z53.21 Procedure and treatment not carried out due to patient leaving prior to being seen by health care provider (principal)

== ENCOUNTER 2019-05-12 16:10 | Emergency (ER) | payer OTHER ==
[2019-05-12 16:36] VITALS: BP 132/83
[2019-05-12] MEDS ORDERED: diPHENhydraMINE PO* 50 MG PO ONE (17:24)
--- NOTE | 2019-05-12 17:27 | UC ---
Skin Complaint HPI - HPI Summary HPI Summary: C/O hives x 2 days. Has tried benadryl. Recent URI. - History of Current Complaint Chief Complaint: UCSkin Time Seen by Provider: 05/12/19 17:08 Stated Complaint: ALLERGIC REACTION COMPLAINT Hx Obtained From: Patient Hx Last Menstrual Period: 1 week ago ?: No Onset/Duration: Sudden Onset, Lasting Days - 2, Worse Since - onset Timing: Constant Onset Severity: Moderate Current Severity: Severe Pain Intensity: 0 Location: Diffuse - worse in areas she is scratching Character: Swelling, Pruritus, Hives Aggravating Factor(s): Touch Alleviating Factor(s): Nothing Associated Signs & Symptoms: Positive: Rash. Negative: Nausea, Vomiting, Diaphoresis, Weakness, Pallor, Shivering, Wheezing, Throat Tightening, Lightheadedness Related History: Other: - Recent URI - Allergy/Home Medications Allergies/Adverse Reactions: Allergies Allergy/AdvReac Type Severity Reaction Status Date / Time aspirin Allergy Hives Verified 05/12/19 16:36 Penicillins Allergy Rash Verified 05/12/19 16:36 sulfamethoxazole Allergy Swelling Verified 05/12/19 16:36 [From Bactrim] Of Face,Lips,& Throat trimethoprim [From Bactrim] Allergy Swelling Verified 05/12/19 16:36 Of Face,Lips,& Throat Home Medications: Home Medications Escitalopram * [Lexapro *] 20 mg PO DAILY 05/12/19 [History Confirmed 05/12/19] diphenhydrAMINE HCl [Benadryl Allergy] 25 mg PO ONCE PRN 05/12/19 [History Confirmed 05/12/19] PMH/Surg Hx/FS Hx/Imm Hx Previously Healthy: Yes Other History Of: Hepatitis C - Surgical History Surgical History: Yes Surgery Procedure, Year, and Place: right arm fx at 9 years old. 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 Smoking Status (MU): Light Every Day Tobacco Smoker Type: Cigarettes Amount Used/How Often: 12 every day Length of Time of Smoking/Using Tobacco: 10+ years Have You Smoked in the Last Year: Yes Household Exposure Type: Cigarettes - Immunization History Most Recent Influenza Vaccination: no Most Recent Tetanus Shot: 01/11/12 Most Recent Pneumonia Vaccination: never Review of Systems All Other Systems Reviewed And Are Negative: Yes Skin: Positive: Rash Physical Exam Triage Information Reviewed: Yes Appearance: Well-Appearing, No Pain Distress, Obese Vital Signs: Initial Vital Signs Temp 97.8 F 05/12/19 16:32 Pulse 100 05/12/19 16:32 Resp 16 05/12/19 16:32 BP 132/83 05/12/19 16:32 Pulse Ox 99 05/12/19 16:32 Vital Signs Reviewed: Yes Eyes: Positive: Conjunctiva Clear ENT: Positive: Pharynx normal, TMs normal Neck exam: Normal Respiratory Exam: Normal Cardiovascular Exam: Normal Abdomen Description: Positive: Nontender, No Organomegaly, Soft Musculoskeletal Exam: Normal Neurological Exam: Normal Psychological Exam: Normal Skin: Positive: Rashes - Urticarial rash, worst on the back. Positive dermagraphism. Course/Dx - Differential Diagnoses - Skin Complaint Differential Diagnoses: Contact Dermatitis, Drug Rash, Eczema, Urticaria, Viral Exanthem - Diagnoses Provider Diagnosis: Dermographism, Viral exanthem, UTI (urinary tract infection) Discharge ED - Sign-Out/Discharge Documenting (check all that apply): Patient Departure All imaging exams completed and their final reports reviewed: No Studies - Discharge Plan Condition: Stable Disposition: HOME Prescriptions: Nitrofurantoin Monohyd/M-Cryst [Macrobid 100 mg Capsule] 100 mg PO BID #14 cap predniSONE 20 mg TAB [Deltasone 20 MG TAB*] 60 mg PO DAILY #18 tab Patient Education Materials: Urticaria (ED), Urinary Tract Infection in Women ( ED) Referrals: Tammy Galan MD [Primary Care Provider] - Additional Instructions: Cool baths. Use ice to the areas that itch. Start the prednisone prescription tomorrow. Ok to add OTC cetirizine for itching along with the benadryl every 6 hours. - Billing Disposition and Condition Condition: STABLE Disposition: Home
--- NOTE | 2019-05-14 15:10 | UC ---
- Progress Note Progress Note: Final urine culture with no growth of organisms. Please call patient and instruct to discontinue antibiotic. Course/Dx - Diagnoses Provider Diagnoses: Dermographism, Viral exanthem, UTI (urinary tract infection) Discharge ED - Sign-Out/Discharge Documenting (check all that apply): Post-Discharge Follow Up All imaging exams completed and their final reports reviewed: No Studies - Discharge Plan Condition: Stable Disposition: HOME Prescriptions: Nitrofurantoin Monohyd/M-Cryst [Macrobid 100 mg Capsule] 100 mg PO BID #14 cap predniSONE 20 mg TAB [Deltasone 20 MG TAB*] 60 mg PO DAILY #18 tab Patient Education Materials: Urinary Tract Infection in Women (ED), Urticaria ( ED) Referrals: Tammy Galan MD [Primary Care Provider] - Additional Instructions: Cool baths. Use ice to the areas that itch. Start the prednisone prescription tomorrow. Ok to add OTC cetirizine for itching along with the benadryl every 6 hours. - Billing Disposition and Condition Condition: STABLE Disposition: Home
== END 2019-05-12 17:44 | disposition home or self-care (01) ==
LOC: UCEAST 16:10
DX: L50.3 Dermatographic urticaria (principal); B09 Unspecified viral infection characterized by skin and mucous membrane lesions; N39.0 Urinary tract infection, site not specified; Z88.0 Allergy status to penicillin; Z88.6 Allergy status to analgesic agent; Z88.2 Allergy status to sulfonamides; Z88.1 Allergy status to other antibiotic agents; F17.210 Nicotine dependence, cigarettes, uncomplicated
CPT/HCPCS: 81003; 87086; 99212; A9270-GY; G0463; J7512

== ENCOUNTER 2019-06-03 13:42 | Emergency (ER) | payer OTHER ==
[2019-06-03 14:54] VITALS: BP 111/78
--- NOTE | 2019-06-03 15:15 | UC ---
FLU HPI - HPI Summary HPI Summary: 28-year-old female comes in with a chief complaint of influenza-like illness for 3-4 days. She is fevers chills cough chest congestion bodyaches. Just been having an itchy rash for several days. Patient reports that she rash occur the last time she was ill and a got better after being treated with prednisone. No difficulty swallowing or breathing. Sputum is yellow. Patient is a smoker. Patient has intermittent nausea and vomiting. She is not nauseous at this time. No complaint of any abdominal pain. - History of Current Complaint Chief Complaint: UCGeneralIllness Stated Complaint: VOMITTING,FEVER, Time Seen by Provider: 06/03/19 15:00 Hx Last Menstrual Period: Pain Intensity: 6 - Allergy/Home Medications Allergies/Adverse Reactions: Allergies Allergy/AdvReac Type Severity Reaction Status Date / Time aspirin Allergy Hives Verified 06/03/19 14:55 Penicillins Allergy Rash Verified 06/03/19 14:55 sulfamethoxazole Allergy Swelling Verified 06/03/19 14:55 [From Bactrim] Of Face,Lips,& Throat trimethoprim [From Bactrim] Allergy Swelling Verified 06/03/19 14:55 Of Face,Lips,& Throat Home Medications: Home Medications Albuterol HFA INHALER* [Ventolin HFA Inhaler*] 1 puff PO Q4H PRN 04/25/19 [ History Confirmed 06/03/19] Escitalopram * [Lexapro *] 20 mg PO DAILY 05/12/19 [History Confirmed 05/12/19] diphenhydrAMINE HCl [Benadryl Allergy] 25 mg PO ONCE PRN 05/12/19 [History Confirmed 05/12/19] Oseltamivir CAP* [Tamiflu CAP*] 75 mg PO BID #10 cap 06/03/19 [Rx] predniSONE 20 mg TAB [Deltasone 20 MG TAB*] 40 mg PO DAILY #10 tab 06/03/19 [Rx] PMH/Surg Hx/FS Hx/Imm Hx Previously Healthy: Yes Other History Of: Hepatitis C - Surgical History Surgical History: Yes Surgery Procedure, Year, and Place: right arm fx at 9 years old. 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 Smoking Status (MU): Light Every Day Tobacco Smoker Type: Cigarettes Amount Used/How Often: 12 every day Length of Time of Smoking/Using Tobacco: 10+ years Have You Smoked in the Last Year: Yes Household Exposure Type: Cigarettes - Immunization History Most Recent Influenza Vaccination: no Most Recent Tetanus Shot: 01/11/12 Most Recent Pneumonia Vaccination: never Review of Systems All Other Systems Reviewed And Are Negative: Yes Constitutional: Positive: Fever, Chills, Other - see hpi Skin: Positive: Negative Eyes: Positive: Negative ENT: Positive: Nasal Discharge, Sinus Congestion Respiratory: Positive: Cough, Other - see hpi Cardiovascular: Positive: Negative Gastrointestinal: Positive: Vomiting, Nausea Motor: Positive: Negative Neurovascular: Positive: Negative Musculoskeletal: Positive: Myalgia Neurological/Mental Status: Positive: Headache Psychological: Positive: Negative Is Patient Immunocompromised?: No Physical Exam Triage Information Reviewed: Yes Appearance: No Pain Distress, Well-Nourished, Ill-Appearing - mild Vital Signs: Initial Vital Signs Temp 97.6 F 06/03/19 14:52 Pulse 91 06/03/19 14:52 Resp 18 06/03/19 14:52 BP 111/78 06/03/19 14:52 Pulse Ox 98 06/03/19 14:52 Vital Signs Reviewed: Yes Eye Exam: Normal Eyes: Positive: Conjunctiva Clear ENT: Positive: Pharyngeal erythema, Nasal congestion, Nasal drainage, TMs normal Neck: Positive: Supple Respiratory: Positive: Lungs clear, Normal breath sounds, No respiratory distress Cardiovascular: Positive: RRR Musculoskeletal: Positive: Strength Intact, ROM Intact Neurological: Positive: Alert, Muscle Tone Normal Psychological: Positive: Normal Response To Family, Age Appropriate Behavior Skin: Positive: Other - Patient has diffuse small areas of erythema on her skin that she has scratched. No hives. Flu Course/Dx - Course Course Of Treatment: Positive for influenza we'll treat with Tamiflu. Patient reports last time she had this same itchy rash got better with prednisone I will prescribe prednisone 40 mg daily for 5 days. Patient to follow-up with dermatology for the recurrent rash. Patient will treat symptomatically for the influenza. Patient to get reevaluated if worse or any questions or concerns. - Differential Dx/Diagnosis Provider Diagnosis: Influenza, Rash Discharge ED - Sign-Out/Discharge Documenting (check all that apply): Patient Departure All imaging exams completed and their final reports reviewed: No Studies - Discharge Plan Condition: Stable Disposition: HOME Prescriptions: Oseltamivir CAP* [Tamiflu CAP*] 75 mg PO BID #10 cap predniSONE 20 mg TAB [Deltasone 20 MG TAB*] 40 mg PO DAILY #10 tab Patient Education Materials: Influenza (ED), Acute Rash (ED) Referrals: Tammy Galan MD [Primary Care Provider] - Juani Robb [Medical Doctor] - Kathy Badillo MD [Medical Doctor] - Naomie Collins MD [Medical Doctor] - Additional Instructions: FOLLOW UP WITH YOUR PRIMARY CARE DOCTOR DOCTOR IF NOT COMPLETELY IMPROVED. FOLLOW UP WITH DERMATOLOGY FOR YOUR RASH. GET REEVALUATED SOONER IF NOT IMPROVED OR WORSE OR ANY QUESTIONS OR CONCERNS. - Billing Disposition and Condition Condition: STABLE Disposition: Home
[2019-06-03 15:24] LABS: Influenza B Molecular POSITIVE (Negative)
== END 2019-06-03 15:50 | disposition home or self-care (01) ==
LOC: UCEAST 13:42
DX: J11.1 Influenza due to unidentified influenza virus with other respiratory manifestations (principal); R21 Rash and other nonspecific skin eruption; F17.210 Nicotine dependence, cigarettes, uncomplicated; Z88.6 Allergy status to analgesic agent; Z88.0 Allergy status to penicillin; Z88.2 Allergy status to sulfonamides
CPT/HCPCS: 87651; 99212; G0463

== ENCOUNTER 2020-05-03 07:46 | Inpatient (IN) ==
[2020-05-03] MEDS ORDERED: NS 0.9% 1000 ml BAG 1,000 ML IV ONE ×2 (07:48→08:25)
[2020-05-03 08:14] LABS: Hematocrit 41 % (35-47); Hemoglobin 13.8 g/dL (12.0-16.0); Mean Corpuscular HGB Conc 34 g/dL (31-36); Mean Corpuscular Hemoglobin 29 pg (27-31); Mean Corpuscular Volume 87 fL (80-97); Platelet Count 523 10^3/uL (150-450); Red Blood Count 4.75 10^6 /uL (3.70-4.87); Red Cell Distribution Width 14 % (10-15); White Blood Count 34.5 10^3/uL (3.5-10.8)
[2020-05-03 08:23] LABS: ALT 31 U/L (7-52); AST 41 U/L (13-39); Albumin 4.8 g/dL (3.2-5.2); Albumin/Globulin Ratio 1.5 (1-3); Alkaline Phosphatase 97 U/L (34-104); Anion Gap 17 mmol/L (2-11); BUN/Creatinine Ratio 9.2 (8-20); Blood Urea Nitrogen 17 mg/dL (6-24); CO2 Carbon Dioxide 16 mmol/L (22-32); Calcium 9.2 mg/dL (8.6-10.3); Chloride 106 mmol/L (101-111); Creatine Kinase 1231 U/L (10-223); EGFR African American 38.7 (>60); Globulin 3.2 g/dL (2-4); Glucose 93 mg/dL (70-100); Potassium 4.9 mmol/L (3.5-5.0); Sodium 139 mmol/L (135-145)
[2020-05-03] MEDS ORDERED: Cefepime 2 GM in NS 0.9% 50 ML 50 ML IVPB ONE (08:26)
[2020-05-03 08:29] LABS: HCG Pregnancy < 0.60 mIU/mL
[2020-05-03] MEDS ORDERED: fentaNYL 100 mcg/2 ml 50 MCG/ML VIAL IV SLOW PU ONE (08:32)
[2020-05-03] MEDS ORDERED: NS 0.9% 50 ML 50 ML ONE (08:37)
[2020-05-03 08:47] LABS: ABS Basophils 0.1 10^3/ul (0-0.2); ABS Lymphocytes 3.7 10^3/ul (1.0-4.8); ABS Monocytes 2.4 10^3/ul (0-0.8); ABS Neutrophils 28.3 10^3/ul (1.5-7.7); Lymphocyte % 10.6 %
[2020-05-03 08:58] LABS: Acetaminophen < 15 mcg/mL; Alcohol, S < 10 mg/dL (<10)
[2020-05-03] MEDS ORDERED: Cefepime 2 GM IV - ED ONCE IV ONE (09:00)
[2020-05-03 09:12] LABS: TSH Ultra Thyroid Stim Horm 7.16 mcIU/mL (0.34-5.60)
[2020-05-03] MEDS ORDERED: Vancomycin 1,500 MG in NS 0.9% 250 ml 250 ML IVPB ONE (09:30)
[2020-05-03] MEDS ORDERED: Haloperidol 5 mg/ml SDV IV/IM 5 MG/ML AMP IV SLOW PU ONE (09:37)
[2020-05-03] MEDS ORDERED: Dextran 70/Hypromellose Tears Eye Drops 15 ml BTL (for Artificials Tears) BOTH EYES PRN (09:49)
[2020-05-03] MEDS ORDERED: Haloperidol 5 mg/ml SDV IV/IM 5 MG/ML AMP IV SLOW PU PRN (11:42)
[2020-05-03 11:43] LABS: Urine Appearance Turbid; Urine Bilirubin Negative (Negative); Urine Blood 3+ (Negative); Urine Color Amber; Urine Glucose Negative (Negative); Urine Ketones 1+ (Negative); Urine Nitrite Negative (Negative); Urine Protein 2+(100 mg/dL) (Negative); Urine Specific Gravity 1.026 (1.010-1.030); Urine Urobilinogen Negative (Negative)
[2020-05-03] MEDS ORDERED: fentaNYL 100 mcg/2 ml 50 MCG/ML VIAL IV SLOW PU PRN (11:45)
[2020-05-03 11:54] LABS: Urine Bacteria Absent (Absent); Urine Red Blood Cell 3+(>10/hpf) (Absent); Urine Squamous Epithelial Cell Present (Absent); Urine White Blood Cell 2+(11-20/hpf) (Absent)
[2020-05-03 12:01] LABS: Urine Benzodiazepine Screen None Detected (None Detect); Urine Cannabinoids Screen None Detected (None Detect); Urine Opiates Screen None Detected (None Detect)
[2020-05-03] MEDS: Erythromycin OPTH OINT APPLIC OINT BOTH EYES SCH ×2 (13:35→21:15)
[2020-05-03] MEDS: Lactated Ringers 1000 ml BAG 1,000 ML IV SCH ×2 (13:35→21:22)
[2020-05-03] MEDS: Heparin 5000 UNITS/ML 1 mL VIAL SUBCUT SCH (21:15)
[2020-05-04 04:08] LABS: Hematocrit 37 % (35-47); Hemoglobin 12.8 g/dL (12.0-16.0); Mean Corpuscular HGB Conc 35 g/dL (31-36); Mean Corpuscular Hemoglobin 30 pg (27-31); Mean Corpuscular Volume 86 fL (80-97); Mean Platelet Volume 7.9 fL (7.4-10.4); Platelet Count 347 10^3/uL (150-450); Red Blood Count 4.35 10^6 /uL (3.70-4.87); Red Cell Distribution Width 14 % (10-15); White Blood Count 15.8 10^3/uL (3.5-10.8)
[2020-05-04] MEDS: Lactated Ringers 1000 ml BAG 1,000 ML IV SCH (05:13)
[2020-05-04 05:37] LABS: Albumin 3.3 g/dL (3.2-5.2); Calcium 8.3 mg/dL (8.6-10.3); Total Bilirubin 0.4 mg/dL (0.2-1.0)
[2020-05-04 05:43] LABS: Albumin/Globulin Ratio 1.4 (1-3); BUN/Creatinine Ratio 19.1 (8-20); EGFR African American 84.6 (>60); EGFR Non-African American 69.9 (>60); Globulin 2.4 g/dL (2-4); Total Protein 5.7 g/dL (6.4-8.9)
[2020-05-04 08:05] VITALS: BP 101/67
[2020-05-04] MEDS: Heparin 5000 UNITS/ML 1 mL VIAL SUBCUT SCH (08:32)
[2020-05-04] MEDS: Erythromycin OPTH OINT APPLIC OINT BOTH EYES SCH (08:33)
[2020-05-04] MEDS ORDERED: Lactated Ringers 1000 ml BAG 1,000 ML IV SCH (09:10)
== END 2020-05-04 11:05 | disposition left against medical advice (07) | DRG 815 ==
LOC: ED 07:46 → ICU 11:29
PROVIDERS: ADMIT Internal Medicine Critical Care Medicine; ATTEND Internal Medicine Critical Care Medicine